=== PATIENT | male | born 1980 | race Caucasian/White ===

== ENCOUNTER 2019-03-20 20:58 | Emergency (ER) | payer BC ==
[2019-03-20 21:17] VITALS: BP 113/79
[2019-03-20] MEDS ORDERED: Cephalexin CAP* 500 MG PO ONE (21:38)
[2019-03-20] MEDS ORDERED: Mupirocin 2% OINT* TUBE TOPICAL ONE (21:39)
--- NOTE | 2019-03-20 21:39 | UC ---
Skin Complaint HPI - HPI Summary HPI Summary: 38 yo male had poison RAJANI on right phan 2 weeks ago now area red/swollen/tender and draining pus does not feel ill no fever - History of Current Complaint Chief Complaint: UCSkin Time Seen by Provider: 03/20/19 21:23 Stated Complaint: SORE ON LEG Hx Obtained From: Patient Onset/Duration: Gradual Onset, Lasting Days Timing: Constant Onset Severity: Mild Current Severity: Mild Pain Intensity: 0 Pain Scale Used: 0-10 Numeric Location: Discrete Character: Swelling, Pain, Redness, Raised, Painful Aggravating Factor(s): Touch Alleviating Factor(s): Nothing Associated Signs & Symptoms: Positive: Drainage, Tenderness. Negative: Nausea, Vomiting, Numbness, Thirst, Diaphoresis, Weakness, Pallor, Shivering, Difficulty Breathing, Fever, Chills, Cough, Wheezing, Chest Pain, Hoarseness, Throat Tightening, Rash, Abdominal Pain, Lightheadedness, Syncope, Red Streaks - Allergy/Home Medications Allergies/Adverse Reactions: Allergies Allergy/AdvReac Type Severity Reaction Status Date / Time No Known Allergies Allergy Verified 03/20/19 21:14 PMH/Surg Hx/FS Hx/Imm Hx Previously Healthy: Yes - Surgical History Surgical History: Yes Surgery Procedure, Year, and Place: Cyst removed from R ear 07/2018 - Family History Known Family History: Positive: Cardiac Disease, Hypertension, Diabetes - Social History Alcohol Use: Occasionally Substance Use Type: None Smoking Status (MU): Never Smoked Tobacco Review of Systems All Other Systems Reviewed And Are Negative: Yes Constitutional: Positive: Negative Skin: Positive: Negative Eyes: Positive: Negative ENT: Positive: Negative Respiratory: Positive: Negative Cardiovascular: Positive: Negative Gastrointestinal: Positive: Negative Genitourinary: Positive: Negative Motor: Positive: Negative Neurovascular: Positive: Negative Musculoskeletal: Positive: Negative Physical Exam Triage Information Reviewed: Yes Appearance: Well-Appearing, No Pain Distress, Well-Nourished Vital Signs: Initial Vital Signs Temp 98.4 F 03/20/19 21:14 Pulse 81 03/20/19 21:14 Resp 18 03/20/19 21:14 BP 113/79 03/20/19 21:14 Pulse Ox 97 03/20/19 21:14 Vital Signs Reviewed: Yes Eyes: Positive: Conjunctiva Clear ENT: Positive: Hearing grossly normal. Negative: Nasal congestion, Nasal drainage, Trismus, Muffled voice, Hoarse voice Neck: Positive: Supple, Nontender, No Lymphadenopathy Respiratory: Positive: Lungs clear, Normal breath sounds, No respiratory distress, No accessory muscle use Cardiovascular: Positive: RRR, No Murmur Musculoskeletal: Positive: ROM Intact, No Edema Neurological: Positive: Alert Psychological Exam: Normal Skin: Positive: Other - see image Images Front/Back of Body, Lg ([place]): 1 - indurated area/no fluctuant but with some scant purulent d/c Course/Dx - Diagnoses Provider Diagnosis: Abscess of right leg Discharge - Sign-Out/Discharge Documenting (check all that apply): Patient Departure All imaging exams completed and their final reports reviewed: No Studies - Discharge Plan Condition: Stable Disposition: HOME Prescriptions: Cephalexin CAP* [Keflex CAP*] 500 mg PO QID #28 cap Patient Education Materials: Abscess (ED) Referrals: Bry WELCH,Jus Davis [Primary Care Provider] - 4 Days (if not better) Additional Instructions: warm compresses twice daily gently dry apply thin film of bactroban oint to open area dressing recheck for new or worsening symptoms - Billing Disposition and Condition Condition: STABLE Disposition: Home
--- NOTE | 2019-03-21 20:06 | UC ---
- Progress Note Progress Note: PLEASE CALL PATIENT. PRELIMINARY CULTURE RETURNED POSITIVE FOR MRSA WHICH IS UNLIKELY TO BE COVERED BY THE KEFLEX HE IS ON. STOP KEFLEX. START BACTRIM TWICE DAILY FOR 10 DAYS. ERX SENT TO [facility] IN [place]. Course/Dx - Diagnoses Provider Diagnoses: Abscess of right leg Discharge - Sign-Out/Discharge Documenting (check all that apply): Post-Discharge Follow Up All imaging exams completed and their final reports reviewed: No Studies - Discharge Plan Condition: Stable Disposition: HOME Prescriptions: Cephalexin CAP* [Keflex CAP*] 500 mg PO QID #28 cap Sulfamethox/Trimethoprim DS* [Bactrim DS 800/160 TAB*] 1 tab PO BID #20 tab Patient Education Materials: Abscess (ED) Referrals: Bry WELCH,Jus Davis [Primary Care Provider] - 4 Days (if not better) Additional Instructions: warm compresses twice daily gently dry apply thin film of bactroban oint to open area dressing recheck for new or worsening symptoms - Billing Disposition and Condition Condition: STABLE Disposition: Home
== END 2019-03-20 22:03 | disposition home or self-care (01) ==
LOC: UCEAST 20:58
DX: L02.415 Cutaneous abscess of right lower limb (principal); B95.62 Methicillin resistant Staphylococcus aureus infection as the cause of diseases classified elsewhere
CPT/HCPCS: 87070; 87205; 87640; 87641; 99212; A9270-GY; G0463